=== PATIENT | female | born 1940 | race Caucasian/White ===

== ENCOUNTER → 2018-06-05 13:07 | Outpatient (CLI) | payer MEDICARE, OTHER, SELFPAY ==
[2018-06-05 15:05] LABS: Erythrocyte Sedimentation Rate 3 MM/HR (0-20)
[2018-06-05 15:07] LABS: Add Manual Diff / Slide Review NO; Basophils Absolute Auto 100 /uL (0-100); Basophils Percent Auto 0.9 % (0-2); C-Reactive Protein Quant 0.9 mg/dL (<1.0); Eosinophils Absolute Auto 100 /uL (0-450); Eosinophils Percent Auto 0.8 % (2-4); Hematocrit 41.3 % (36-46); Hemoglobin 13.5 g/dL (12.0-16.0); Lymphocytes Absolute Auto 1600 /uL (1100-4500); Lymphocytes Percent Auto 21.2 % (25-40); Mean Corpuscular HGB Conc 32.6 % (30-36); Mean Corpuscular Hemoglobin 28.4 PG (26-34); Mean Corpuscular Volume 87.1 fL (80-100); Monocytes Absolute Auto 800 /uL (0-900); Monocytes Percent Auto 10.5 % (3-14); Neutrophils Absolute Auto 5000 /uL (1500-7000); Neutrophils Percent Auto 66.6 % (50-75); Platelet Count 273 X10^3/uL (150-400); Red Blood Cell Count 4.74 X10^6/uL (4.0-5.2); Red Cell Distribution Width 13.8 % (11.6-14.8); White Blood Cell Count 7.5 X10^3/uL (4.5-11.0)
== END ==
PROVIDERS: PCP Physician Assistant; Visit Provider Orthopaedic Surgery
DX: M67.449 Ganglion, unspecified hand (principal); M79.644 Pain in right finger(s); Z98.890 Other specified postprocedural states
CPT/HCPCS: 36415; 85025; 85651; 86140

== ENCOUNTER → 2019-01-17 17:23 | Outpatient (CLI) | payer MEDICARE, OTHER, SELFPAY ==
--- NOTE | 2019-01-17 17:26 | DI.MRI.S_ITS ---
PROCEDURE: MR KNEE LT WO CON INDICATIONS: UNSPECIFIED INTERNAL DERAINGMENT OF LEFT KNEE TECHNIQUE: Noncontrast sagittal PD fast spin echo and T2 fast spin echo with fat saturation, sagittal 3-D FLASH with fat saturation; coronal T1 spin echo and PD fast spin echo with fat saturation, and axial PD fast spin echo with fat saturation through the knee. COMPARISON: None. FINDINGS: Image quality: Excellent. Menisci: Medial extrusion of the medial meniscus. Linear horizontally oriented high T2 signal intensity traverses the medial meniscal body and posterior horn, demonstrating inferior articular surface extension. There is radial tearing of the free edge of the lateral meniscal body. Amorphous and linear high signal intensity within the lateral meniscal body and anterior horn is present, demonstrating inferior articular surface extension. Cruciate ligaments: The anterior and posterior cruciate ligaments appear intact. Medial structures: The medial collateral ligament appears intact. Visualized portions of the pes anserinus tendons appear normal. No abnormal bursal fluid. Lateral structures: The lateral collateral ligament, long and short heads of the biceps femoris tendon appear intact. The popliteus tendon appears normal. Iliotibial band appears normal. Anterior structures: The quadriceps and patellar tendons appear intact. Patellar alignment is normal. No femoral trochlear dysplasia or ventral trochlear prominence. No edema in the infrapatellar fat pad. Bones and cartilage: No bone marrow contusions or fractures. There is mild tri-compartmental periarticular osteophyte formation. Mild subchondral degenerative marrow edema within the medial femoral condyle and medial tibial plateau. Focal region of severe articular cartilage loss overlies the medial patellar apex measuring roughly 5 mm. Moderate articular cartilage loss overlies the lateral patellar facet inferiorly. Joint space: There is a small knee joint effusion and a trace Martínez's cyst. Normal appearing synovial plicae are incidentally noted. IMPRESSION: 1. Tricompartmental osteoarthritis with associated articular cartilage loss. 2. Medial and lateral meniscal tearing. 3. Knee joint effusion. Trace Martínez's cyst. Dictated by: Katia Hicks M.D. on 01/20/2019 at 14:14 Approved by: Katia Hicks M.D. on 01/20/2019 at 14:16
== END ==
PROVIDERS: PCP Physician Assistant; Visit Provider Physician Assistant
DX: M17.12 Unilateral primary osteoarthritis, left knee (principal); S83.242A Other tear of medial meniscus, current injury, left knee, initial encounter; S83.282A Other tear of lateral meniscus, current injury, left knee, initial encounter; M25.462 Effusion, left knee
CPT/HCPCS: 73721

== ENCOUNTER → 2021-09-20 10:21 | Outpatient (CLI) | payer MEDICARE, OTHER, SELFPAY ==
--- NOTE | 2021-09-20 | DI.RAD.S_ITS ---
PROCEDURE: XR ABDOMEN MIN 2V INDICATIONS: Unspecified abdominal pain TECHNIQUE: 2 views of the abdomen were acquired. COMPARISON: None. FINDINGS: Surgical changes and devices: Right upper quadrant surgical clips are present. Bowel: No pneumoperitoneum. The bowel gas pattern is normal. Soft tissues: No masses; visualized solid organ contours appear normal in size. No suspicious abdominal calcifications. Bones: No suspicious bony abnormalities. IMPRESSION: No acute process. Dictated by: Katia Hicks M.D. on 09/20/2021 at 12:03 Approved by: Katia Hicks M.D. on 09/20/2021 at 12:03
== END ==
PROVIDERS: PCP Registered Nurse; Referring Provider Internal Medicine Gastroenterology; Visit Provider Internal Medicine Gastroenterology
DX: R93.3 Abnormal findings on diagnostic imaging of other parts of digestive tract (principal); R10.9 Unspecified abdominal pain
CPT/HCPCS: 74019

== ENCOUNTER → 2021-10-04 13:31 | Outpatient (CLI) | payer MEDICARE, OTHER, SELFPAY ==
[2021-10-04 14:13] LABS: COVID19 -Nasal RAPID Negative (Negative)
== END ==
PROVIDERS: PCP Registered Nurse; Visit Provider Surgery
DX: Z20.822 Contact with and (suspected) exposure to COVID-19 (principal); Z01.812 Encounter for preprocedural laboratory examination
CPT/HCPCS: 87635; C9803

== ENCOUNTER 2021-10-05 11:02 | Day surgery (SDC) | payer MEDICARE, OTHER, SELFPAY ==
--- NOTE | 2021-10-05 | PATH_ITS ---
[facility] Accession Number: [id number] . 01 Material submitted: . PART A: stomach - RANDOM ANTRUM BIOPSIES PART B: esophagus - RANDOM BIOPSIES SHOTSKI'S . 01 Clinical history: . SDC UNSPECIFIED ABDOMINAL PAIN ABNORMAL [id number] ON DIAGNOSTIC IMAGING . 01 Diagnosis: A. Stomach, Antrum, Random Biopsies: Antral mucosa with reactive gastropathy and mild chronic inflammation. Negative for Helicobacter by immunohistochemistry. Negative for intestinal metaplasia. Negative for dysplasia and malignancy. . B. Esophagus, Biopsies: Squamous epithelium with no diagnostic abnormality. A PAS stain is negative for fungal organisms. No definite fungal organisms identified on H/E stain. Intraepithelial eosinophils are not increased. Negative for dysplasia and malignancy. . . MRV 10/12/2021 1313 Local . 01 Electronically signed: . Yakelin Llanes MD, Pathologist NPI- [id number] . 01 Gross description: . Part A: RANDOM ANTRUM BIOPSIES: Received in formalin are 3 fragment(s) of barrera, soft tissue measuring 0.2 x 0.1 x 0.1 cm to 0.1 x 0.1 x 0.1 cm submitted entirely in 1 cassette(s) Part B: RANDOM BIOPSIES SHOTSKI'S: Received in formalin are 2 fragment(s) of barrera, soft tissue measuring 0.2 x 0.2 x 0.1 cm to 0.2 x 0.1 x 0.1 cm submitted entirely in 1 cassette(s) /CPE 10/06/2021 0907 Local . 01 Microscopic: . A. An immunohistochemical stain was performed to evaluate for Helicobacter organisms and is negative. The control stain showed appropriate reactivity. . B. An AB/PAS stain is performed to evaluate for fungal and is negative. The control stain showed appropriate reactivity. . * This test was developed and its performance characteristics determined by [facility]. It has not been cleared or approved by the U.S. Food and Drug Administration. The FDA has determined that such clearance or approval is not necessary. This test is used for clinical purposes. It should not be regarded as investigational or for research. . 01 Pathologist provided ICD-10: R10.9, R93.3 . 01 CPT . 539594, 448006, U18230, 387596 Specimen Comment: A courtesy copy of this report has been sent to [phone] Performed at: 01 [facility] [address] [place] [address], [place], [place] [id number] MD Jay Jay Ochoa MD Phone: [phone]
--- NOTE | 2021-10-05 11:54 | PM.HP.1 ---
History of Present Illness History of Present Illness Date Patient Seen: 10/05/21 Time Patient Seen: 11:54 Chief complaint: sdc Narrative: I reviewed my note from September 20. No significant changes. Patient History Medical History Colitis (~09/20/16) Ear infection Fractures Gallbladder attack (~11/2000) Gallbladder attack (~05/31/01) Hearing loss History of blood clots (~05/06/17) History of urinary incontinence (~2009) Kidney stones Measles Mumps Pancreatitis (~04/12/14) Plantar fasciitis (~05/2003) Pulmonary embolism Small bowel problem Stye (~04/08/18) Surgical History Basal cell carcinoma (~10/2017) Broken wrist (~03/28/06) Fibroid tumor (~02/17/71) History of breast biopsy (~12/04/06) History of cholecystectomy (~06/25/01) History of colonoscopy (~09/12/06) History of dilation and curettage (~12/20/71) History of hysterectomy (~06/19/72) History of surgery (~03/26/02) History of surgery on wrist (~04/13/06) History of tonsillectomy Mucous cyst of finger (~04/22/17) Family & Social History Family History Father Heart disease Tobacco & Substance use: Smoking Status Never smoker Meds Home Medications and Allergies Home Medications Medication Instructions Recorded Confirmed Type apixaban 5 mg tablet 5 mg PO BID 06/19/18 10/05/21 History Cholestyramine Light DAILY 10/05/21 History levothyroxine 88 mcg tablet 1 tab DAILY 10/05/21 10/05/21 History Allergies Allergy/AdvReac Type Severity Reaction Status Date / Time erythromycin base AdvReac Unknown Verified 10/05/21 11:42 Penicillins AdvReac Unknown Verified 10/05/21 11:42 Review of Systems Review of Systems ROS: Yes All systems reviewed with the patient and are negative except as otherwise documented Exam Const General: cooperative HENMT Head: normal to inspection Eyes General: appearance normal, both eyes and all related structures Neck Neck: normal visual inspection Chest Chest: normal inspection of the chest Resp Effort & Inspection: normal respiratory effort Cardio Rate: regular rate GI Inspection: normal to inspection Skin General: no rashes or lesions noted Neuro General: patient alert and patient awake Extrem General: normal to inspection and no pedal edema Psych Appearance: grossly normal Assessment & Plan Assessment & Plan narrative: 81-year-old female with left upper quadrant pain and abnormal CT imaging. EGD is pursued to evaluate the antrum. Time Spent With Patient Critical Care time: I spent a total of [] minutes of critical care time on this patient's care today; this time is exclusive of procedural time.
[2021-10-05 11:55] VITALS: BP 138/71; PULSE 72; RESP 18; TEMP 36.5; O2SAT 97
--- NOTE | 2021-10-05 11:55 | PM.PREOP ---
Pre-operative Note COVID-19 COVID-19 status: Negative Result date/Date tested (Pos, Neg/Pending): 10/04/21 Criteria for continued procedure: Possibility delay results in more complex future surgery or treatment Interval Note History & Physical reviewed/Exam performed by Physician: Yes Changes to H&P: No ASA Class (for procedural sedation): II
[2021-10-05 11:58] VITALS: BMI 26.3
[2021-10-05] MEDS: SODIUM CHLORIDE 0.9% 1,000 ML 84 ML IV (12:19)
--- NOTE | 2021-10-05 12:41 | PM.OP.EGD ---
Operative Date/Time/Diagnoses Date of procedure: 10/05/21 Time of procedure: 12:41 Pre-op diagnosis: Abnormal CT imaging left upper quadrant pain Post-op diagnosis: same Procedure & Clinicians Study performed: EGD with biopsies Same procedure as scheduled: Yes Indications: Abnormal CT imaging left upper quadrant pain Surgeon: Willie Barnes Procedure Notes SCOAP/Timeout: Done Procedure in detail: After the risks and benefits were explained, written and verbal informed consent was obtained. The patient was brought into the procedure room and placed into the left lateral decubitus position. Please see nurse relocation commissioner notes for sedation details. The scope was introduced into the mouth through the bite block and advanced under direct visualization to the 2nd portion of the duodenum. The scope was slowly withdrawn carefully examining the mucosa for any defects or lesions. Retroflexed views were accomplished in the stomach. The stomach was decompressed, the scope was then removed from the patient who tolerated the procedure well. Sedation minutes: 9 Complications: none Impression: 1. Duodenum: No mucosal pathology appreciated from the bulb through the 2nd portion. 2. Stomach: No ulcers. No outlet obstruction. No mass lesions throughout. Mild gastropathy was appreciated characterized by erythema through the antrum. Biopsies were acquired from the antral mucosa for exclusion of Helicobacter or other pathology but I did not see any sinister findings throughout the stomach to correlate with the recent CT scan. Retroflexed views disclosed a small sliding hiatal hernia. 3. Esophagus: The squamocolumnar junction correlated with the top of the gastric folds. The GE junction was at roughly 38 cm or so. There was a sliding hiatal hernia. There was a Schatzki's ring nonobstructing at the level of GE junction without any acute inflammatory features. Couple of disruptive biopsies were taken with forceps out of the ring. The remainder of the esophagus was unremarkable. Endoscopic diagnosis 1. Gastropathy 2. Small hiatal hernia 3. Nonobstructing Schatzki's ring status post disruptive biopsies. Post-procedure Plan for aftercare: 1. Await histopathology. 2. No explanation was made for the patient's symptoms of left upper quadrant pain. 3. If there is no evidence of Helicobacter pylori infection by histology, diagnostic colonoscopy will need to be considered. Disposition: PACU
[2021-10-05 12:47] VITALS: BP 133/74; PULSE 72; RESP 24; TEMP 36.3; O2SAT 97
[2021-10-05 12:52] VITALS: BP 148/80; PULSE 81; RESP 20; O2SAT 98
[2021-10-05 12:57] VITALS: BP 143/80; PULSE 68; RESP 12; O2SAT 99
[2021-10-05 13:01] VITALS: BP 149/81; PULSE 63; RESP 16; TEMP 36.5; O2SAT 99
[2021-10-05 13:07] VITALS: BP 153/77; PULSE 62; RESP 14; O2SAT 13
== END 2021-10-05 13:30 | disposition home or self-care (01) ==
PROVIDERS: PCP Registered Nurse; Referring Provider Internal Medicine Gastroenterology; Visit Provider Internal Medicine Gastroenterology
PROC: 0DJ08ZZ Inspection of Upper Intestinal Tract, Via Natural or Artificial Opening Endoscopic (ICD-10-PCS; CPT 43235; principal; 2021-10-05 12:30)
DX: K31.9 Disease of stomach and duodenum, unspecified (principal); K22.2 Esophageal obstruction; K44.9 Diaphragmatic hernia without obstruction or gangrene; K29.50 Unspecified chronic gastritis without bleeding
CPT/HCPCS: 43239; J2704